=== PATIENT | male | born 1955 | race Caucasian/White ===

== ENCOUNTER → 2016-07-22 | Outpatient (CLI) | payer MEDICAID ==
[~2016-07-22] MED LIST: FAMOTIDINE 20MG20 MG PO; FLEXERIL10 MG PO; GENTAMICIN O5 ML/BOT OP; HYDROCODONE-APA1 TA2 PO; LIDODERM 5% PA1 EACH TD; MOBIC15 MG PO; MOTRIN 600MG.600 MG PO; NAPROSYN 500MG500 MG PO; NOMEDS XX; NORCO 325 MG-101 TAB PO; TIZANIDINE HCL 44 MG NG
--- NOTE | 2016-07-22 10:45 | RADIOLOGY REPORT PS360 ---
CHEST(2 VIEWS-NOT PORTABLE) HISTORY: RT ANTERIOR CP X 2 WEEKS ORDERING PHYSICIAN: Andrew Lamas MD PATIENT AGE: 61 years COMPARISON: 11/23/2015 FINDINGS: The cardiomediastinal silhouette and pulmonary vascularity are within normal limits. There is hyperinflation with attenuation of the peripheral pulmonary vessels consistent with COPD. No lobar consolidation or collapse. Probable nipple artifact left lower lobe.. No acute bony abnormalities. IMPRESSION: COPD, no change with no acute finding
== END ==
LOC: RAD 09:51
DX: R07.89 Other chest pain (principal)